=== PATIENT | male | born 1995 | race Caucasian/White ===

== ENCOUNTER 2017-09-10 12:49 | Observation (INO) | payer OTHER ==
[2017-09-10] MEDS: ONDANSETRON (ODT) 4 MG TAB ODT (13:49)
[2017-09-10] MEDS: SOD CHLORIDE 0.9% 1,000 ML IV ×3 (13:50→18:43)
[2017-09-10] MEDS: ONDANSETRON 4 MG INJ IV ×4 (13:53→21:19)
[2017-09-10] MEDS: HYDROmorphONE 0.5 MG/0.5 ML SYG IV (13:59)
[2017-09-10 14:24] LABS: ADD MAN DIFF? NO
[2017-09-10 14:29] LABS: WHITE BLOOD COUNT 17.1 10^3/ul (4.8-10.8)
[2017-09-10 14:29] LABS: BASOPHIL # 0.1 10^3/ul (0.0-0.1); BASOPHILS % 0.4 % (0.0-2.0); EOSINOPHILS # 0.1 10^3/ul (0.0-0.5); EOSINOPHILS % 0.4 % (0.0-7.0); HEMATOCRIT 45.8 % (42.0-52.0); HEMOGLOBIN 16.5 g/dl (14.0-18.0); LYMPHOCYTES % 11.8 % (15.0-51.0); MEAN CORPUSCULAR HEMOGLOBIN 29.8 pg (29.0-33.0); MEAN CORPUSCULAR VOLUME 82.8 fl (82.0-101.0); MONOCYTE # 0.5 10^3/ul (0.3-0.9); MONOCYTES % 2.9 % (0.0-11.0); NEUTROPHIL # 14.3 10^3/ul (1.6-7.5); NEUTROPHILS % 83.9 % (39.0-77.0); PLATELET COUNT 302 10^3/UL (140-415); RED BLOOD COUNT 5.53 10^6/ul (4.70-6.10)
[2017-09-10 14:46] LABS: ALANINE AMINOTRANSFERASE 36 IU/L (13-69); ALBUMIN 5.6 g/dl (3.3-4.9); ALKALINE PHOSPHATASE 82 IU/L (42-121); ANION GAP 24 (8-16); ASPARTATE AMINO TRANSFERASE 28 IU/L (15-46); BILIRUBIN,INDIRECT 0.4 mg/dl (0-1.1); BILIRUBIN,TOTAL 0.4 mg/dl (0.2-1.3); BLOOD UREA NITROGEN 13 mg/dl (7-20); CALCIUM 10.9 mg/dl (8.4-10.2); CARBON DIOXIDE 23 mmol/L (21-31); CHLORIDE 105 mmol/L (97-110); CREATININE 0.74 mg/dl (0.61-1.24); GLUCOSE 134 mg/dl (70-220); LIPASE 125 U/L (23-300); POTASSIUM 3.8 mmol/L (3.5-5.1); SODIUM 148 mmol/L (135-144); TOTAL PROTEIN 9.6 g/dl (6.1-8.1)
[2017-09-10] MEDS: METOCLOPRAMIDE 10 MG INJ IV ×2 (14:56→19:14)
[2017-09-10 15:41] LABS: ADD UMIC YES; UR ASCORBIC ACID NEGATIVE (NEGATIVE); UR BILIRUBIN (Dip) NEGATIVE (NEGATIVE); UR BLOOD (Dip) NEGATIVE (NEGATIVE); UR CLARITY CLEAR (CLEAR); UR COLOR YELLOW (YELLOW); UR GLUCOSE (Dip) NEGATIVE (NEGATIVE); UR KETONES (Dip) 1+ mg/dL (NEGATIVE); UR LEUKOCYTE ESTERASE (Dip) NEGATIVE Leu/ul (NEGATIVE); UR MUCUS FEW /HPF (NONE SEEN); UR NITRITE (Dip) NEGATIVE (NEGATIVE); UR RBC 3 /HPF (0-5); UR SPECIFIC GRAVITY (Dip) 1.021 (1.003-1.030); UR TOTAL PROTEIN (Dip) 2+ mg/dl (NEGATIVE); UR UROBILINOGEN (Dip) NEGATIVE (NEGATIVE); UR WBC 4 /HPF (0-5)
[2017-09-10] MEDS: PROCHLORPERAZINE 10 MG INJ IV (16:07)
[2017-09-10] MEDS ORDERED: ACETAMINOPHEN 325 MG TAB PO ×2 (17:30→18:00)
[2017-09-10] MEDS ORDERED: HYDROCODONE/APAP (5/325) TAB PO (18:00)
[2017-09-10] MEDS ORDERED: ONDANSETRON 4 MG TAB PO (18:00)
[2017-09-10] MEDS ORDERED: NACL 0.9% 3 ML SYG IV (18:00)
[2017-09-11] MEDS: ZOLPIDEM 5 MG TAB PO (01:11)
[2017-09-11] MEDS: METOCLOPRAMIDE 10 MG INJ IV (01:14)
[2017-09-11] MEDS: SOD CHLORIDE 0.9% 1,000 ML IV ×2 (01:48→09:48)
[2017-09-11] MEDS: ONDANSETRON 4 MG INJ IV (05:23)
[2017-09-11 06:21] LABS: ADD MAN DIFF? NO
[2017-09-11 06:26] LABS: WHITE BLOOD COUNT 14.6 10^3/ul (4.8-10.8)
[2017-09-11 06:26] LABS: BASOPHILS % 0.1 % (0.0-2.0); HEMATOCRIT 40.4 % (42.0-52.0); HEMOGLOBIN 14.6 g/dl (14.0-18.0); LYMPHOCYTES # 1.3 10^3/ul (0.8-2.9); LYMPHOCYTES % 8.7 % (15.0-51.0); MEAN CORPUSCULAR HEMOGLOBIN 29.6 pg (29.0-33.0); MEAN CORPUSCULAR HGB CONC 36.1 g/dl (32.0-37.0); MEAN CORPUSCULAR VOLUME 81.9 fl (82.0-101.0); MEAN PLATELET VOLUME 10.6 fl (7.4-10.4); MONOCYTE # 0.4 10^3/ul (0.3-0.9); NEUTROPHIL # 12.8 10^3/ul (1.6-7.5); NEUTROPHILS % 87.8 % (39.0-77.0); PLATELET COUNT 269 10^3/UL (140-415); RED BLOOD COUNT 4.93 10^6/ul (4.70-6.10); RED CELL DISTRIBUTION WIDTH 12.3 % (11.5-14.5)
[2017-09-11 07:08] LABS: ALANINE AMINOTRANSFERASE 34 IU/L (13-69); ALBUMIN 4.9 g/dl (3.3-4.9); ALBUMIN/GLOBULIN RATIO 1.48; ALKALINE PHOSPHATASE 62 IU/L (42-121); ANION GAP 21 (8-16); ASPARTATE AMINO TRANSFERASE 22 IU/L (15-46); BILIRUBIN,INDIRECT 0.6 mg/dl (0-1.1); BILIRUBIN,TOTAL 0.6 mg/dl (0.2-1.3); BLOOD UREA NITROGEN 8 mg/dl (7-20); CALCIUM 9.5 mg/dl (8.4-10.2); CARBON DIOXIDE 23 mmol/L (21-31); CHLORIDE 106 mmol/L (97-110); CREATININE 0.69 mg/dl (0.61-1.24); GLUCOSE 117 mg/dl (70-220); MAGNESIUM 1.3 mg/dl (1.7-2.5); PHOSPHORUS 3.9 mg/dl (2.5-4.9); POTASSIUM 3.2 mmol/L (3.5-5.1); SODIUM 147 mmol/L (135-144); TOTAL PROTEIN 8.2 g/dl (6.1-8.1)
[2017-09-11] MEDS: POTASSIUM CHLORIDE (SR) 20 MEQ TAB PO (08:08)
[2017-09-11] MEDS: MAGNESIUM SULFATE 4 GM/100 ML 100 ML IVPB (08:37)
[2017-09-11] MEDS: ENOXAPARIN 40 MG/0.4 ML SYG SC (09:12)
== END 2017-09-11 14:59 | disposition home or self-care (01) ==
LOC: FTE 12:49 → PP2 17:28
DX: R19.7 Diarrhea, unspecified (principal); R11.10 Vomiting, unspecified; F17.200 Nicotine dependence, unspecified, uncomplicated
CPT/HCPCS: 36415; 71045; 74176; 80053; 81001; 83690; 83735; 84100; 85025; 87040; 96361; 96374; 96375; 96376; 99285-25; G0378

== ENCOUNTER 2017-12-17 12:05 | Day surgery (SDC) | payer OTHER ==
[2017-12-17] MEDS ORDERED: FENTAnyl 50 MCG/ML VIAL ×3 (14:37→16:52)
[2017-12-17] MEDS ORDERED: MIDAZOLAM 1 MG/ML 2 ML INJ (14:38)
[2017-12-17] MEDS ORDERED: BUPIVACAINE 0.25% (MPF) 30 ML INJ (15:01)
[2017-12-17] MEDS ORDERED: LIDOCAINE 1% (MPF) 30 ML INJ (15:01)
[2017-12-17] MEDS ORDERED: NEOMYC/POLYMYX/BACIT 30 GM OINT (16:35)
[2017-12-17] MEDS: POLYMYXIN/BACITRACIN 1L IRRIG (16:48)
[2017-12-17] MEDS ORDERED: LIDOCAINE 2% (SDV) 5 ML INJ (16:48)
[2017-12-17] MEDS ORDERED: PROPOFOL 20 ML (16:48)
[2017-12-17] MEDS ORDERED: morphine 10 MG INJ (16:49)
[2017-12-17] MEDS ORDERED: ONDANSETRON 4 MG INJ ×2 (16:50→17:02)
[2017-12-17] MEDS ORDERED: CEFAZOLIN 1 GM INJ (16:51)
[2017-12-17] MEDS ORDERED: METOCLOPRAMIDE 10 MG INJ IV (17:00)
[2017-12-17] MEDS ORDERED: morphine (1 MG/ML) 10ML SYRINGE IV (17:00)
[2017-12-17] MEDS ORDERED: FENTAnyl 50 MCG/ML VIAL IV (17:00)
[2017-12-17] MEDS ORDERED: DIPHENHYDRAMINE 50 MG INJ IV (17:00)
[2017-12-17] MEDS ORDERED: MIDAZOLAM 1 MG/ML 2 ML INJ IV (17:00)
[2017-12-17] MEDS ORDERED: MEPERIDINE 25 MG INJ (17:02)
[2017-12-17] MEDS ORDERED: HYDROmorphONE 1 MG/5 ML IV SYRINGE IV (17:02)
[2017-12-17] MEDS: ONDANSETRON 4 MG INJ IV (17:15)
[2017-12-17] MEDS: HYDROmorphONE 1 MG/5 ML IV SYRINGE IV ×3 (17:15→17:31)
[2017-12-17] MEDS: KETOROLAC 30 MG INJ IV (17:16)
[2017-12-17] MEDS: MEPERIDINE 25 MG INJ IV (17:16)
== END 2017-12-17 18:39 | disposition home or self-care (01) ==
LOC: SDS 12:05
DX: M62.441 Contracture of muscle, right hand (principal); T23.021S Burn of unspecified degree of single right finger (nail) except thumb, sequela; X08.8XXS Exposure to other specified smoke, fire and flames, sequela
CPT/HCPCS: 15240; 73140; 87086

== ENCOUNTER 2017-12-20 01:06 | Emergency (ER) | payer OTHER ==
[2017-12-20] MEDS ORDERED: IBUPROFEN 800 MG TAB PO (02:30)
== END 2017-12-20 05:34 | disposition left against medical advice (07) ==
LOC: FTE 01:06
DX: Z48.01 Encounter for change or removal of surgical wound dressing (principal); Z87.891 Personal history of nicotine dependence
CPT/HCPCS: 99283; Z7502